=== PATIENT | female | born 1945 | race Caucasian/White ===

== ENCOUNTER 2021-12-04 13:41 | Emergency (ER) | payer OTHER ==
[~2021-12-04] VITALS: Ht 160 cm; Wt 87.5 kg
--- NOTE | 2021-12-04 13:42 | NUR ---
BIB SON C/O L LEG PAIN AND SWELLING SINCE THIS MORNING, WENT TO URGENT CARE AND WAS TOLD IT COULD POSSIBLY BE A DVT. PT ATTCHED TO MONITOR. DR MUÑOZ AT BEDSIDE.
[2021-12-04] MEDS ORDERED: HYDROCODONE/APAP 10/325MG TABLET ONE (14:12)
[2021-12-04] MEDS: HYDROCODONE/APAP 10/325MG TABLET PO ONE (14:15)
--- NOTE | 2021-12-04 14:50 | NUR ---
US TECH AT THE BEDSIDE
[2021-12-04 15:09] LABS: BASOPHILS % (AUTO) 0.7 % (0.0-2.0); EOSINOPHILS % (AUTO) 2.6 % (0.0-6.0); HEMATOCRIT 34 % (33-45); HEMOGLOBIN 11.1 g/dL (11.5-14.8); LYMPHOCYTES # (AUTO) 1.6 K/uL (0.8-4.8); LYMPHOCYTES % (AUTO) 25.5 % (20.0-44.0); MEAN CORPUSCULAR HGB CONC 33 g/dl (31.0-36.0); MEAN CORPUSCULAR VOLUME 95 fL (82-100); MONOCYTES # (AUTO) 0.6 K/uL (0.1-1.30); MONOCYTES % (AUTO) 9.7 % (2.0-12.0); NEUTROPHILS # (AUTO) 3.9 K/uL (1.8-8.9); NEUTROPHILS % (AUTO) 61.5 % (43.0-81.0); PLATELET COUNT (AUTO) 282 K/uL (150-450); RED BLOOD CELL COUNT(AUTO) 3.54 MIL/uL (4.0-5.2); WHITE BLOOD COUNT (AUTO) 6.4 K/uL (4.3-11.0)
[2021-12-04 15:25] LABS: CALCIUM, SERUM 8.8 mg/dL (8.5-10.1); CREATININE 1.1 mg/dL (0.6-1.3); POTASSIUM 4.4 mmol/L (3.5-5.1)
[2021-12-04] MEDS ORDERED: MELO15TA13 PO (16:04)
[2021-12-04] MEDS ORDERED: TRAM50TA2 PO (16:04)
[2021-12-04] MEDS: MELOXICAM 7.5 MG TABLET PO SCH (16:09)
[2021-12-04 16:11] VITALS: BP 137/88
== END 2021-12-04 16:12 | disposition home or self-care (01) ==
LOC: ER 13:45
DX: M25.562 Pain in left knee (principal); M17.12 Unilateral primary osteoarthritis, left knee; I10 Essential (primary) hypertension; E78.5 Hyperlipidemia, unspecified; E11.9 Type 2 diabetes mellitus without complications; Z88.8 Allergy status to other drugs, medicaments and biological substances
CPT/HCPCS: 36415; 73564-TC; 73590-TC; 80048-TC; 85025-TC; 93971-TC